=== PATIENT | female | born 1990 | race Caucasian/White ===

== ENCOUNTER 2017-11-04 10:36 | Inpatient (IN) | payer MEDICAID ==
[2017-12-04] MEDS ORDERED: BUTORPHANOL 2 MG INJ IV (19:30)
[2017-12-04] MEDS ORDERED: IBUPROFEN 600 MG TAB PO (19:30)
[2017-12-04] MEDS ORDERED: METHYLERGONOVINE 0.2 MG INJ IM ×2 (19:30→22:00)
[2017-12-04] MEDS ORDERED: MISOPROSTOL 200 MCG TAB PR ×2 (19:30→22:00)
[2017-12-04] MEDS ORDERED: CARBOPROST 250 MCG INJ IM ×2 (19:30→22:00)
[2017-12-04] MEDS ORDERED: LIDOCAINE 1% (MPF) 30 ML INJ INJ (19:30)
[2017-12-04] MEDS ORDERED: OXYTOCIN 30 UNITS/LR 500 ML IV ×2 (19:30→22:00)
[2017-12-04] MEDS: LACTATED RINGER'S 1,000 ML IV (20:02)
[2017-12-04 20:29] LABS: ADD MAN DIFF? NO
[2017-12-04 20:31] LABS: WHITE BLOOD COUNT 14.6 10^3/ul (4.8-10.8)
[2017-12-04 20:31] LABS: BASOPHIL # 0.1 10^3/ul (0.0-0.1); BASOPHILS % 0.4 % (0.0-2.0); EOSINOPHILS # 0.2 10^3/ul (0.0-0.5); HEMATOCRIT 38.7 % (37.0-47.0); HEMOGLOBIN 13.3 g/dl (12.0-16.0); LYMPHOCYTES # 2.7 10^3/ul (0.8-2.9); LYMPHOCYTES % 18.2 % (15.0-51.0); MEAN CORPUSCULAR HEMOGLOBIN 31.8 pg (29.0-33.0); MEAN CORPUSCULAR HGB CONC 34.4 g/dl (32.0-37.0); MEAN CORPUSCULAR VOLUME 92.6 fl (82.0-101.0); MEAN PLATELET VOLUME 12.6 fl (7.4-10.4); MONOCYTE # 0.9 10^3/ul (0.3-0.9); MONOCYTES % 6.2 % (0.0-11.0); NEUTROPHIL # 10.6 10^3/ul (1.6-7.5); NEUTROPHILS % 72.8 % (39.0-77.0); PLATELET COUNT 199 10^3/UL (140-415); RED BLOOD COUNT 4.18 10^6/ul (4.20-5.40); RED CELL DISTRIBUTION WIDTH 12.6 % (11.5-14.5)
[2017-12-04 21:06] LABS: INR 0.88; PT RATIO 0.9
[2017-12-04 21:07] LABS: PARTIAL THROMBOPLASTIN TIME 28.8 Sec (25.0-35.0)
[2017-12-04 21:19] LABS: HEPATITIS B SURFACE ANTIGEN NEGATIVE (NEGATIVE)
[2017-12-04] MEDS: OXYTOCIN 30 UNITS/LR 500 ML IV ×2 (21:19→21:50)
[2017-12-04] MEDS ORDERED: LANOLIN 7 GM TUBE TOP (22:00)
[2017-12-04] MEDS ORDERED: NACL 0.9% 3 ML SYG IV (22:00)
[2017-12-04] MEDS ORDERED: BENZOCAINE 20% 56 ML SPRAY TOP (22:00)
[2017-12-04] MEDS ORDERED: OXYCODONE/ASPIRIN (4.88/325) TAB PO ×2 (22:00)
[2017-12-04] MEDS ORDERED: DIBUCAINE 1% 30 GM OINT PR (22:00)
[2017-12-04] MEDS ORDERED: SENNA/DOCUSATE NA (8.6MG/50MG) TAB PO (22:00)
[2017-12-04] MEDS ORDERED: ONDANSETRON 4 MG INJ IV (22:00)
[2017-12-05] MEDS: WITCH HAZEL/GLYCERIN PAD PR (02:01)
[2017-12-05] MEDS: OXYTOCIN 30 UNITS/LR 500 ML IV (02:47)
[2017-12-05] MEDS: IBUPROFEN 600 MG TAB PO ×4 (06:41→17:34)
[2017-12-05 06:54] LABS: ADD MAN DIFF? NO
[2017-12-05 07:04] LABS: WHITE BLOOD COUNT 16.6 10^3/ul (4.8-10.8)
[2017-12-05 07:04] LABS: BASOPHIL # 0.1 10^3/ul (0.0-0.1); BASOPHILS % 0.3 % (0.0-2.0); EOSINOPHILS # 0.1 10^3/ul (0.0-0.5); EOSINOPHILS % 0.6 % (0.0-7.0); HEMATOCRIT 33.1 % (37.0-47.0); HEMOGLOBIN 11.5 g/dl (12.0-16.0); LYMPHOCYTES # 2.4 10^3/ul (0.8-2.9); LYMPHOCYTES % 14.6 % (15.0-51.0); MEAN CORPUSCULAR HEMOGLOBIN 32.1 pg (29.0-33.0); MEAN CORPUSCULAR HGB CONC 34.7 g/dl (32.0-37.0); MEAN CORPUSCULAR VOLUME 92.5 fl (82.0-101.0); MONOCYTE # 1.1 10^3/ul (0.3-0.9); MONOCYTES % 6.6 % (0.0-11.0); NEUTROPHIL # 12.8 10^3/ul (1.6-7.5); NEUTROPHILS % 76.8 % (39.0-77.0); PLATELET COUNT 166 10^3/UL (140-415); RED BLOOD COUNT 3.58 10^6/ul (4.20-5.40); RED CELL DISTRIBUTION WIDTH 12.8 % (11.5-14.5)
[2017-12-05] MEDS: SENNA/DOCUSATE NA (8.6MG/50MG) TAB PO ×2 (10:42→20:35)
[2017-12-05 17:28] LABS: RAPID PLASMA REAGIN NONREACTIVE (NR)
[2017-12-06] MEDS: IBUPROFEN 600 MG TAB PO ×3 (05:59→11:54)
[2017-12-06] MEDS: SENNA/DOCUSATE NA (8.6MG/50MG) TAB PO (08:50)
[2017-12-06 08:52] LABS: ADD MAN DIFF? NO
[2017-12-06 08:59] LABS: BASOPHILS % 0.2 % (0.0-2.0); EOSINOPHILS # 0.2 10^3/ul (0.0-0.5); EOSINOPHILS % 1.3 % (0.0-7.0); HEMATOCRIT 32.4 % (37.0-47.0); HEMOGLOBIN 10.7 g/dl (12.0-16.0); LYMPHOCYTES # 2.4 10^3/ul (0.8-2.9); LYMPHOCYTES % 19.7 % (15.0-51.0); MEAN CORPUSCULAR HEMOGLOBIN 31.7 pg (29.0-33.0); MEAN CORPUSCULAR VOLUME 95.9 fl (82.0-101.0); MEAN PLATELET VOLUME 11.9 fl (7.4-10.4); MONOCYTE # 0.8 10^3/ul (0.3-0.9); MONOCYTES % 6.6 % (0.0-11.0); NEUTROPHIL # 8.8 10^3/ul (1.6-7.5); NEUTROPHILS % 71.1 % (39.0-77.0); PLATELET COUNT 170 10^3/UL (140-415); RED BLOOD COUNT 3.38 10^6/ul (4.20-5.40); RED CELL DISTRIBUTION WIDTH 13.2 % (11.5-14.5)
[2017-12-06 08:59] LABS: WHITE BLOOD COUNT 12.3 10^3/ul (4.8-10.8)
== END 2017-12-06 18:29 | disposition home or self-care (01) | DRG 775 ==
LOC: OBT 10:36 → L-D 12-05 00:24 → PP1 12-05 15:14 → L-D 12-04 18:25 → OBT 12-04 19:00 → L-D 12-04 19:00
PROVIDERS: Obstetrics & Gynecology
PROC: 10E0XZZ Delivery of Products of Conception, External Approach (ICD-10-PCS; principal; 2017-12-04)
PROC: 0HQ9XZZ Repair Perineum Skin, External Approach (ICD-10-PCS; 2017-12-04)
DX: O70.0 First degree perineal laceration during delivery (principal); Z3A.39 39 weeks gestation of pregnancy; Z37.0 Single live birth
CPT/HCPCS: 76815; 85025; 85610; 85730; 86592; 86850; 86900; 86901; 87340